=== PATIENT | female | born 1990 | race Caucasian/White ===

== ENCOUNTER → 2024-11-25 06:56 | Outpatient (REF) | payer OTHER, SELFPAY | LOC: PNTC 06:56 | PROVIDERS: ATTENDING PHYSICIAN Nurse Practitioner Family | DX: O36.80X0 Pregnancy with inconclusive fetal viability, not applicable or unspecified (principal) | CPT/HCPCS: 36415; 76801; 76813 ==

== ENCOUNTER → 2025-01-21 15:21 | Outpatient (REF) | payer OTHER, SELFPAY | LOC: PNTC 15:21 | PROVIDERS: ATTENDING PHYSICIAN Student in an Organized Health Care Education/Training Program | DX: O09.529 Supervision of elderly multigravida, unspecified trimester (principal) | CPT/HCPCS: 76811; 76817 ==

== ENCOUNTER → 2025-04-22 07:53 | Outpatient (REF) | payer OTHER, SELFPAY | LOC: PNTC 07:53 | PROVIDERS: ATTENDING PHYSICIAN Student in an Organized Health Care Education/Training Program | DX: O09.529 Supervision of elderly multigravida, unspecified trimester (principal) | CPT/HCPCS: 76816 ==